=== PATIENT | male | born 1950 | race Caucasian/White ===

== ENCOUNTER 2024-04-09 15:12 | Emergency (ER) | payer MEDICARE, OTHER ==
[~2024-04-09] VITALS: Ht 175.3 cm; Wt 116.0 kg
[~2024-04-09 15:12] MED LIST: ALLOPURINOL300 MG PO; AMLODIPINE BESY10 MG PO; ASPIR-LOW81 MG PO; CLARITIN10 M2 PO; CLONIDINE HCL0.1 MG PO; DOCUSATE SODIU100 MG PO; GABAPENTIN300 MG PO; GLIPIZIDE5 MG PO; HYDROCODON-ACE1 EA11 PO; HYDROCODON-ACE1 EAC8 PO; ISOSORBIDE MONO30 MG PO; LANTUS100 UNITS/ SUB-Q; LEVOTHYROXINE88 MCG PO; LIPITOR40 MG PO; LISINOPRIL40 MG PO; MACUVITE EYE C1 EACH PO; MELATONIN1 MG PO; METOPROLOL SUC100 MG PO; NORCO 7.5-3251 EACH PO; NOVOLOG100 UNIT/2 SQ; OMEPRAZOLE20 MG PO; VITAMIN D350 MC2 PO
[2024-04-09 15:38] LABS: BASOPHILS 0.2 % (0-2); EOSINOPHILS 1.6 % (0-6); HEMATOCRIT 48.8 % (35.0-50.0); HEMOGLOBIN 16.5 g/dL (12.0-18.0); LYMPHOCYTES 36.5 % (24-44); MCH 30.3 (27-36); MCHC 33.9 g/dl (30-36); MCV 89.5 fl (81-99); MONOCYTES 11.5 % (0-12); NEUTROPHILS 50.2 % (39-80); PLATELET COUNT 244 K/uL (140-440); RBC 5.45 M/ul (4.3-5.7); RDW 14.7 (10.5-15.0)
[2024-04-09] MEDS ORDERED: SODIUM CHLORIDE 0.9% 1,000 ML IV ONE (15:45)
[2024-04-09 15:48] LABS: ALBUMIN 3.3 g/dL (3.4-5.0); ALBUMIN/GLOBULIN RATIO 0.94 (1.1-2.4); ANION GAP 10.6 (7-21); BILIRUBIN, TOTAL 0.4 ng/dL (0.2-1.0); BUN/CREATININE RATIO 10.4 (6.0-28.6); CALCIUM 8.2 mg/dL (8.5-10.1); CREATININE, SERUM 2.21 mg/dL (0.70-1.30); POTASSIUM 4.6 mmol/L (3.5-5.1); PROTEIN, TOTAL 6.8 g/dL (6.4-8.2)
[2024-04-09 16:39] LABS: BILIRUBIN, URINE NEGATIVE (negative); BLOOD/HGB, URINE NEGATIVE (Negative); KETONE, URINE NEGATIVE (Negative); LEUK ESTERASE, URINE NEGATIVE (negative); NITRITE, URINE NEGATIVE (negative)
[2024-04-09 17:00] LABS: BACTERIA, URINE NONE SEEN /hpf (negative); CASTS, URINE NONE SEEN \\lpf; COLLECTION TYPE, URINE CLEAN CATCH; CRYSTALS, URINE NONE SEEN (0-1+); EPITHELIAL CELLS, URINE SQUAMOUS 1+ /lpf (0-1+); RED BLOOD CELLS, URINE 0-1 /hpf (0-5); REFLEX CULTURE, URINE No (No); WHITE BLOOD CELLS, URINE 0-1 /HPF (0-5)
[2024-04-09 18:54] LABS: INFLUENZA B NAA NEGATIVE (NEGATIVE); RESPIRATORY SYNCYTIAL VIR NAA NEGATIVE (NEGATIVE)
[2024-04-09 20:09] VITALS: BP 166/77
== END 2024-04-09 20:06 | disposition home or self-care (01) ==
LOC: ED 15:12
PROVIDERS: Emergency Medicine
DX: R53.1 Weakness (principal); E11.9 Type 2 diabetes mellitus without complications; I10 Essential (primary) hypertension; Z88.5 Allergy status to narcotic agent; Z79.899 Other long term (current) drug therapy; Z79.82 Long term (current) use of aspirin; Z79.4 Long term (current) use of insulin; Z11.52 Encounter for screening for COVID-19
CPT/HCPCS: 36415; 70450; 80053; 81001; 84484; 85025; 87502; 96360; 99285-25; J7030; U0002